=== PATIENT | male | born 1950 | race Caucasian/White ===

== ENCOUNTER 2019-12-05 18:03 | Emergency (ER) | payer OTHER, MEDICARE ==
--- NOTE | 2019-12-05 18:06 | PDOC ---
History of Present Illness - General Chief Complaint: Injury Stated Complaint: left palm lac History Source: Patient Exam Limitations: No Limitations - History of Present Illness Initial Comments: 69 yo M with a hx of HTN presents to the emergency department with laceration to the hand left. Per the patient, he was shucking clams for the first time with a new knife when it flipped and impaled him in the left hand. Per the patient, his last tetanus was "maybe within the past 5 years" but is unsure definitively. Denies the following: fevers, chills, SOB, chest pain, nausea, vomiting, abdominal pain, dysuria, diarrhea, and leg pain/swelling. Past History - Medical History Allergies/Adverse Reactions: Allergies Allergy/AdvReac Type Severity Reaction Status Date / Time No Known Allergies Allergy Verified 03/02/14 09:44 Home Medications: Ambulatory Orders Atorvastatin Ca [Lipitor (Restricted To Cardiology)] 10 mg PO HS 07/29/12 Olmesartan Medoxomil [Benicar] 20 mg PO BID 07/29/12 Omeprazole 20 mg PO DAILY 07/29/12 Aspirin [ASA -] 81 mg PO DAILY 03/02/14 COPD: No GI Disorders: Yes (GERD) HTN: Yes Hypercholesterolemia: Yes Kidney Stones: Yes - Immunization History Immunization Up to Date: Yes - Psycho-Social/Smoking History Smoking Status: No Smoking History: Never smoked Have you smoked in the past 12 months: No Number of Cigarettes Smoked Daily: 0 Review of Systems - Review of Systems Able to Perform ROS?: Yes Is the patient limited Setswana proficient: No Constitutional: No: Chills, Diaphoresis, Fever, Weakness HEENTM: No: Eye Pain, Ear Pain, Nose Pain, Throat Pain Respiratory: No: Cough, Shortness of Breath Cardiac (ROS): No: Chest Pain ABD/GI: No: Diarrhea, Nausea, Vomiting : No: Dysuria Musculoskeletal: No: Back Pain Integumentary: Yes: Lesions (laceration) Neurological: No: Headache Psychiatric: No: Change in Appetite Endocrine: No: Unexplained Weight Loss *Physical Exam - Physical Exam General Appearance: Yes: Nourished, Appropriately Dressed. No: Apparent Distress, Intoxicated HEENT: positive: EOMI, JAY, Normal Voice, Symmetrical Neck: positive: Trachea midline, Supple. negative: Tender Respiratory/Chest: positive: Lungs Clear, Normal Breath Sounds. negative: Chest Tender, Respiratory Distress, Accessory Muscle Use Cardiovascular: positive: Regular Rhythm, Regular Rate, S1, S2. negative: Systolic Murmur Gastrointestinal/Abdominal: positive: Flat, Soft. negative: Tender Lymphatic: negative: Adenopathy Musculoskeletal: positive: Normal Inspection. negative: CVA Tenderness, Vertebral Tenderness Extremity: positive: Normal Capillary Refill, Normal Range of Motion. negative: Normal Inspection (laceration 2.5 cm on the left hand at the hypothenar eminence without involvement of tendon. intact strength and sensation throughout the hand and fingers. no discoloration noted. ) Integumentary: positive: Normal Color, Dry, Warm Neurologic: positive: Alert, Normal Mood/Affect Procedures - Laceration/Wound Repair Left Volar Hand Wound Length: to 2.5 cm Wound Explored: clean Wound's Depth, Shape: superficial Irrigated w/ Saline: Yes Betadine Prep: No (alcohol) Anesthesia: 1% Lidocaine Amount of Anesthetic (ccs): 2 Wound Debrided: minimal Wound Repaired With: Sutures Suture Size/Type: 4:0 Number of Sutures: 4 Layer Closure: No Sterile Dressing Applied: Yes Medical Decision Making - Medical Decision Making 69 yo M with a hx of HTN presents to the emergency department with laceration to the hand left. Initial vitals: Initial Vital Signs Temp Pulse Resp BP Pulse Ox 98.7 F 79 16 150/88 99 12/05/19 18:05 12/05/19 18:05 12/05/19 18:05 12/05/19 18:05 12/05/19 18:05 Work up: patient presents with laceration with no involvement of nerve, muscle, and tendon. likely no FB. will obtain xray to confirm patient is unsure of exact timing of previous tetanus shot. will provide one patient to have laceration repaired (reference procedure note). Patient to be discharged with follow up. return precautions given Discharge - Discharge Information Problems reviewed: Yes Clinical Impression/Diagnosis: Laceration of hand Qualifiers: Encounter type: initial encounter Foreign body presence: without foreign body Laterality: left Qualified Code(s): S61.412A - Laceration without foreign body of left hand, initial encounter Condition: Improved Disposition: HOME - Follow up/Referral Referrals: [facility] [place] [facility] [place] [Provider Group] - Patient Discharge Instructions Patient Printed Discharge Instructions: DI for Laceration Repair -- Simple Additional Instructions: You were seen in the emergency department for the evaluation of your laceration. You received 4 sutures in your hand. Please return to the emergency department to have them removed in 10-14 days from discharge. Thank you. if you have fevers or inability to move hand or increased pain please return immediately. - Post Discharge Activity
--- NOTE | 2019-12-05 18:23 | PDOC ---
Attending Attestation - Resident Resident Name: Israel Park - ED Attending Attestation I have performed the following: I have examined & evaluated the patient, The case was reviewed & discussed with the resident, I agree w/resident's findings & plan, Exceptions are as noted - HPI HPI: 12/05/19 18:17 Patient stabbed the palm of his hand while working with a knife. Minimal bleeding. No distal numbness tingling pain or weakness. No limited range of motion of the digits Past medical history significant for CABG but no AK, no diabetes or PVD. - Physicial Exam PE: 12/05/19 18:18 1.5 cm laceration over the thenar eminence. Explored, superficial, consisting only of epidermis and subcutaneous tissue. No deep puncture. No deep structures exposed Sensation to the fingertips is intact to light touch and pinprick. There is full flexor tendon function of the MCP, PIP, and DIP joints against resistance. There is no weakness. - Medical Decision Making 12/05/19 18:19 Assessment: Superficial laceration of the palm. Neurovascular intact Plan: Local anesthesia 1% lidocaine and repair performed by Dr. Park. Further exploration during repair showed no significant issue injury. Discharge - Discharge Information Problems reviewed: Yes Clinical Impression/Diagnosis: Laceration of hand Qualifiers: Encounter type: initial encounter Foreign body presence: without foreign body Laterality: left Qualified Code(s): S61.412A - Laceration without foreign body of left hand, initial encounter Condition: Improved Disposition: HOME - Admission No - Follow up/Referral - Patient Discharge Instructions Patient Printed Discharge Instructions: DI for Laceration Repair -- Simple - Post Discharge Activity
[2019-12-05 18:33] VITALS: BP 150/88; PULSE 79; TEMP 98.7; BMI 26.4
[2019-12-05] MEDS ORDERED: DIPHTH,PERTUSS(ACELL),TET 0.5 ML DISP.SYRIN IM ONE ×2 (18:46→18:48)
== END 2019-12-05 19:16 | disposition home or self-care (01) ==
LOC: FER 18:03
PROC: 3E0234Z Introduction of Serum, Toxoid and Vaccine into Muscle, Percutaneous Approach (ICD-10-PCS; principal; 2019-12-05)
DX: S61.412A Laceration without foreign body of left hand, initial encounter (principal)
CPT/HCPCS: 73130-TC-LT-FY; 90715; 99284-25

== ENCOUNTER 2020-03-11 10:17 | Emergency (ER) | payer OTHER, MEDICARE | END 2020-03-11 10:57 | disposition home or self-care (01) | LOC: JVIRT 10:17 | DX: Z20.822 Contact with and (suspected) exposure to COVID-19 (principal) | CPT/HCPCS: C9803; G2012-GT; U0003 ==

== ENCOUNTER 2020-07-14 22:28 | Emergency (ER) | payer OTHER, MEDICARE ==
[2020-07-14 22:37] VITALS: BP 154/95; PULSE 73; TEMP 98.9; BMI 27.1
== END 2020-07-14 22:55 | disposition home or self-care (01) ==
LOC: FER 22:28
DX: S09.93XA Unspecified injury of face, initial encounter (principal)
CPT/HCPCS: 99283-25

== ENCOUNTER 2020-09-23 11:51 | Emergency (ER) | payer OTHER, MEDICARE ==
[2020-09-24 12:08] LABS: SARS-CoV-2 NAA Not Detected (Not Detected)
== END 2020-09-23 12:34 | disposition home or self-care (01) ==
LOC: JVIRT 11:51
DX: Z11.52 Encounter for screening for COVID-19 (principal)
CPT/HCPCS: C9803; Q3014-GT; U0003; U0005